=== PATIENT | female | born 1975 | race Caucasian/White ===

== ENCOUNTER 2020-12-30 08:21 | Emergency (ER) | payer OTHER, SELFPAY ==
[2020-12-30] VITALS (37 sets, daily range): BP systolic 104–162; BP diastolic 81–99; PULSE 61–85; RESP 13–24; TEMP 36.4–36.6; O2SAT 98–100
--- NOTE | ~2020-12-30 | XR_ITS ---
EXAMINATION: XR chest 1V portable EXAM DATE: 12/30/2020 08:51 INDICATION: Weakness and anemia. TECHNIQUE: Portable AP frontal chest x-ray was obtained. Comparison is made to prior examination from 04/25/2018. FINDINGS: The lungs are clear. There are no pleural effusions. The cardiomediastinal silhouette is within normal limits. There is no pneumothorax suspected. The bones and soft tissues are unremarkab le. IMPRESSION: No acute cardiopulmonary findings. Reviewed, dictated and finalized at location B.
--- NOTE | 2020-12-30 08:34 | ECG_ITS ---
Measurements Intervals [place] Rate: 71 P: 31 WA: 148 QRS: 17 QRSD: 94 T: 29 QT: 367 QTc: 400 Interpretive Statements SINUS RHYTHM INCOMPLETE RIGHT BUNDLE BRANCH BLOCK BORDERLINE ECG Electronically Signed On 12-30-2020 8:50:04 CDT by Valeriy Iverson D.O.
--- NOTE | 2020-12-30 08:42 | ED.WEAKNESS ---
HPI - Weakness General Chief complaint: Weakness Stated complaint: FEELS ANEMIC Time Seen by Provider: 12/30/20 08:38 Source: RN notes reviewed History of Present Illness HPI Narrative: Patient presents to emergency department from home for weakness. Patient states that she has a history of anemia and used to follow-up with Dr. Heredia but has not seen him in several years she states she has had to have blood transfusions for this and they never found out a reason why she states she has been feeling anemic over the past week with increased weakness over the past 2 days she states that with that she has had associated midsternal chest pain that radiates to her neck that is intermittent as well as intermittent feelings of shortness of breath she denies any fevers or chills abdominal pain nausea vomiting or any other symptoms denies any chest pain at this time Related Data Allergies Allergy/AdvReac Type Severity Reaction Status Date / Time iron Allergy Intermediate Verified 07/17/19 17:01 No Known Allergies Allergy Verified 07/17/19 17:01 Review of Systems Review of Systems: Narrative: Gen.: Denies fevers or chills Eyes: Denies eye pain or visual change ENT: Denies congestion Respiratory: Reports shortness of breath CV: Reports chest pain GI: Denies abdominal pain nausea, emesis or diarrhea denies burning, urgency, frequency or hematuria Musculoskeletal: Denies back pain or muscle pain Neuro: Reports weakness Skin: Denies rash Except as documented, all other systems reviewed and negative [facility] Past Medical History Medical History (Updated 12/30/20 @ 12:11 by Terry Spangler DO) Anemia Family History Family History (System 07/17/19 @ 17:01 by Sharri Horne) Father Hypertension Family history of diabetes mellitus in first degree relative Family history of heart disease in male family member before age 55 Mother Hypertension Other Cerebrovascular accident Diabetes mellitus Family history of arthritis Family history of cardiovascular disease Social History Social History Smoking status: Never smoker Alcohol intake: never Exam Narrative: Exam Narrative: APPEARANCE: No acute distress, nontoxic, resting in bed EYES: EOMI HEENT: Normocephalic, atraumatic, OMM RESPIRATORY: No respiratory distress Clear to auscultation bilaterally with no rhonchi wheezing or rales. CARDIOVASCULAR: Regular rate and rhythm without murmurs rubs or gallops. ABDOMINAL: Soft, nontender, nondistended, no rebound or guarding MUSCULOSKELETAl: Moves all extremities. No clubbing, cyanosis or edema. NEURO: Awake and alert x 4. Following commands, speech normal, no focal deficits SKIN:: Warm, dry. No rashes lesions or abrasions PSYCHIATRIC: Normal affect/mood, Course Course Emergency Course: Discussed with patient results of workup and diagnosis. Discussed need for follow-up with primary care, proper use of medication, and reasons to return to the emergency department. Patient understands and agrees to current treatment plan Vital Signs Vital signs: Vital Signs Temperature 97.8 F 12/30/20 08:50 Pulse Rate 71 12/30/20 08:50 Respiratory Rate 15 12/30/20 08:50 Blood Pressure 162/92 H 12/30/20 08:50 Pulse Oximetry 98 12/30/20 08:50 Temperature 97.8 F 12/30/20 08:50 Pulse Rate 63 12/30/20 11:07 Respiratory Rate 20 12/30/20 11:07 Blood Pressure 141/99 H 12/30/20 11:07 Pulse Oximetry 100 12/30/20 11:07 MDM - Weakness MDM Narrative Medical decision making narrative: Patient's EKGs and labs are without significant high risk changes. Cardiac risk factors reviewed. Patient is felt likely low risk for ACS and reasonable for further risk stratification testing as an outpatient. Pain was not sudden or maximal in onset without tearing or ripping quality. No other signs of symptoms suggest aortic dissection. A low-risk Wells criteria is noted,
[2020-12-30 08:57] LABS: Basophils Absolute Auto 0.1 K/mm3 (0.0-0.1); Basophils Percent Auto 0.9 % (0.2-1.2); Eosinophils Absolute Auto 0.2 K/mm3 (0-0.3); Eosinophils Percent Auto 3.5 % (0-4.4); Hematocrit 42.1 % (37.0-47.0); Hemoglobin 12.3 g/dL (12.0-15.0); Immature Granulocyte Absolute 0.03 K/mm3 (0.00-0.031); Immature Granulocyte Percent A 0.5 % (0-0.5); Lymphocytes Absolute Auto 1.52 K/mm3 (0.9-3.2); Lymphocytes Percent Auto 23.1 % (18.3-44.2); Mean Corpuscular HGB Conc 29.2 g/dl (32-36); Mean Corpuscular Hemoglobin 22.2 pg (26-34); Mean Platelet Volume 11.3 fl (7.4-10.4); Monocytes Absolute Auto 0.6 K/mm3 (0.1-0.6); Monocytes Percent Auto 9.4 % (2.6-8.5); Neutrophils Absolute Auto 4.1 K/mm3 (1.3-6.7); Neutrophils Percent Auto 62.6 % (45.5-73.1); Platelet Count Result 311 k/mm3 (150-375); Red Blood Count 5.54 M/mm3 (4.2-5.4); Red Cell Distribution Width 16.3 % (11.5-14.5); White Blood Count 6.6 K/mm3 (4.5-10.0)
[2020-12-30 09:00] LABS: Add Urine Microscopic? YES; Appearance Urine Cloudy (Clear); Bilirubin Urine Negative (Negative); Blood Urine 2+ (Negative); Color Urine Yellow (Yellow); Glucose Urine UA Negative (Negative); Ketones Urine Negative (Negative); Leukocyte Esterase Ur 2+ LEU/UL (Negative); Mucus Urine Rare /lpf; Nitrate Urine Negative (Negative); Protein Urine Negative (Negative); Specific Grav Ur 1.014 (1.001-1.035); Squamous Epithelial Cell Urine Many /hpf (Few); Urobilinogen Urine Negative mg/dL (<2.0); WBC Urine 21-30 /hpf
[2020-12-30 09:05] LABS: Alanine Aminotransferase 16 U/L (4-35); Albumin Level 4.4 g/dL (3.5-5.1); Alkaline Phosphatase 85 U/L (38-126); Anion Gap 10 mmol/L (8-16); Aspartate Amino Transferase 24 U/L (14-36); Bilirubin,Total 0.3 mg/dL (0.2-1.3); Blood Urea Nitrogen 10 mg/dL (7-17); Calcium 9.2 mg/dL (8.4-10.2); Carbon Dioxide 24 mmol/L (22-30); Chloride 105 mmol/L (98-107); Estimated CRCL calculation 86 ml/min; Estimated Glomerular Filt Rate > 60; Glucose 106 mg/dL (65-110); Potassium 4.1 mmol/L (3.4-5.0); Sodium 139 mmol/L (137-145)
[2020-12-30] MEDS: SODIUM CHLORIDE 0.9% IV 1,000 ML 999 ML IV CONT (09:10)
[2020-12-30 09:19] LABS: INR 0.9
[2020-12-30 09:23] LABS: Troponin I < 0.012 ng/mL (0.000-0.034)
[2020-12-30 10:04] LABS: Hypochromasia 1+ (NORMAL); Platelet Estimate Adequate (Adequate)
[2020-12-30 11:13] LABS: D Dimer 0.42 ug/mL (<0.48)
[2020-12-30 11:55] LABS: Troponin I < 0.012 ng/mL (0.000-0.034)
[2020-12-30] MEDS: NITROFURANTOIN MONOHYD MACROCR 100 MG CAP PO (12:05)
== END 2020-12-30 12:46 | disposition home or self-care (01) ==
PROVIDERS: Emergency Provider Emergency Medicine
DX: N39.0 Urinary tract infection, site not specified (principal); R53.1 Weakness; R07.9 Chest pain, unspecified; Z86.2 Personal history of diseases of the blood and blood-forming organs and certain disorders involving the immune mechanism; I45.10 Unspecified right bundle-branch block
CPT/HCPCS: 36415; 71045; 80053; 81001; 81025; 84484; 85025; 85380; 85610; 85730; 86850; 86900; 86901; 87086; 93005; 96360; 99284; A9270; J7030